=== PATIENT | male | born 1960 | race Caucasian/White ===

== ENCOUNTER 2016-06-08 11:22 | Emergency (ER) | payer BC ==
[~2016-06-08] VITALS: Ht 172.7 cm; Wt 65.8 kg
[2016-06-08 11:23] VITALS: BP 152/85
[2016-06-08] MEDS ORDERED: AUGM875T27 PO (12:30)
[2016-06-08] MEDS ORDERED: IBUPROFEN 600 MG TAB PO ONE (12:30)
[2016-06-08] MEDS ORDERED: AUGMENTIN 875 MG TAB PO ONE (12:30)
[2016-06-08] MEDS ORDERED: IBUP600T26 PO (12:30)
[2016-06-08] MEDS ORDERED: NORCO, ANEXSIA 5/325MG TABLET (HYDROcodone/ACETAMINOPHEN) PO ONE ×3 (12:30→12:45)
== END 2016-06-08 13:21 | disposition home or self-care (01) ==
LOC: M ED 11:57
DX: K02.9 Dental caries, unspecified (principal); R51 Headache; F17.210 Nicotine dependence, cigarettes, uncomplicated

== ENCOUNTER 2019-05-25 14:22 | Emergency (ER) | payer BC ==
[~2019-05-25] VITALS: Ht 172.7 cm; Wt 68.7 kg
[~2019-05-25 14:22] MED LIST: AUGM875T28 PO; IBUP-1022 PO
[2019-05-25] MEDS ORDERED: IBUP200C25 PO (14:31)
[2019-05-25 15:51] LABS: BASO # 0.1 10^3/uL (0.0-0.2); BASO % 1.2 % (0.0-1.0); EOS # 0.2 10^3/uL (0.0-0.5); EOS % 2.1 % (0.0-3.0); HEMATOCRIT 47.7 % (42.0-52.0); HEMOGLOBIN 15.7 g/dl (13.5-17.5); LYMPH # 1.8 10^3/uL (1.5-5.0); LYMPH % 20.5 % (24.0-44.0); MEAN CORPUSCULAR HGB CONC 32.9 g/dl (32.0-36.5); MEAN CORPUSCULAR VOLUME 97.3 fl (80.0-96.0); MONO # 0.7 10^3/uL (0.0-0.8); NEUTROPHILS # 5.8 10^3/uL (1.5-8.5); PLATELET COUNT, AUTOMATED 318 10^3/uL (150-450); WHITE BLOOD COUNT 8.5 10^3/uL (4.0-10.0)
[2019-05-25] MEDS ORDERED: ACETAMINOPHEN 650MG ER TAB (TYLENOL ARTHRITIS) PO PRN (16:00)
[2019-05-25] MEDS ORDERED: KETOROLAC 60 MG/2 ML VIAL (J1885) IM ONE (16:00)
--- NOTE | 2019-05-25 16:32 | REP ---
HISTORY: Back pain. No trauma. COMPARISON: No priors. Partial syndesmophyte formation is seen at the L1-2 level on the right and at the L2-3 level bilaterally. These are mild. The pedicles are intact bilaterally. Vertebral body height and alignment is within normal limits on this limited three view exam. There is evidence of mild to moderate posterior disc space narrowing at every level. IMPRESSION: Chronic changes as described above. Electronically Signed by Luke Carroll DO 05/25/2019 04:41 P
--- NOTE | 2019-05-25 16:35 | REP ---
HISTORY: Back pain. No trauma. COMPARISON: No priors. There is degenerative disc space narrowing seen anteriorly, moderately involving the mid thoracic level and mildly involving all other thoracic levels. Vertebral body height and alignment is within normal limits for the patient's age. The pedicles are intact bilaterally. There is anterior lipping seen involving the mid thoracic levels. IMPRESSION: Chronic changes. Electronically Signed by Luke Carroll DO 05/25/2019 04:41 P
[2019-05-25 16:52] LABS: ERYTHROCYTE SEDIMENTATION RATE 4 mm/hr (0-20)
[2019-05-25] MEDS ORDERED: KETO10TAB PO (17:05)
[2019-05-25 17:13] VITALS: BP 136/81
== END 2019-05-25 17:14 | disposition home or self-care (01) ==
LOC: M ED 14:22
DX: G89.29 Other chronic pain (principal); M54.5 Low back pain; M54.6 Pain in thoracic spine; M25.78 Osteophyte, vertebrae; M51.34 Other intervertebral disc degeneration, thoracic region; F17.200 Nicotine dependence, unspecified, uncomplicated
CPT/HCPCS: 72072; 72100; 80047; 85025; 85652; 99283; J1885

== ENCOUNTER → 2024-05-03 | Outpatient (CLI) | payer OTHER ==
[~2024-05-03] MED LIST changes: +IBUP200C25 PO; +KETO10TAB PO
[2024-05-03 12:54] LABS: HEMATOCRIT 44.2 % (42.0-52.0); HEMOGLOBIN 14.6 g/dl (13.5-17.5); MEAN CORPUSCULAR VOLUME 93.8 fl (80.0-96.0); PLATELET COUNT, AUTOMATED 306 10^3/uL (150-450); RED BLOOD COUNT 4.71 10^6/uL (4.30-6.10); WHITE BLOOD COUNT 9.8 10^3/uL (4.0-10.0)
[2024-05-03 13:27] LABS: THYROID STIMULATING HORMONE 0.934 uIU/ML (0.55-4.78)
[2024-05-03 13:29] LABS: ALBUMIN 3.9 G/DL (3.2-5.2); ALKALINE PHOSPHATASE 58 U/L (40-129); ALT/SGPT 16 U/L (7.0-40); AST/SGOT 13 U/L (<34); BILIRUBIN,TOTAL 0.5 MG/DL (0.3-1.2); BLOOD UREA NITROGEN 14 MG/DL (9-23); CALCIUM LEVEL 9.6 MG/DL (8.3-10.6); CARBON DIOXIDE LEVEL 27 MMOL/L (20-31); CHLORIDE LEVEL 107 MMOL/L (98-107); CHOLESTEROL LEVEL 168 MG/DL (<200); CHOLESTEROL RISK RATIO 4.13 (<5); CREATININE FOR GFR 0.85 MG/DL (0.70-1.30); GLOMERULAR FILTRATION RATE > 60.0 (>49); GLUCOSE, FASTING 92 MG/DL (74-106); HDL CHOLESTEROL 40.6 MG/DL (>40); LDL CHOLESTEROL 105.6 MG/DL (<100); NON-HDL-C 127.4 MG/DL; POTASSIUM SERUM 4.6 MMOL/L (3.5-5.1); SODIUM LEVEL 141 MMOL/L (136-145); TOTAL PROTEIN 7.4 G/DL (5.7-8.2); TRIGLYCERIDES LEVEL 109 MG/DL (<150)
[2024-05-03 13:35] LABS: HEMOGLOBIN A1c 5.6 % (4.0-6.0)
[2024-05-04 11:58] LABS: PSA FREE 0.2 ng/mL; PSA TOTAL 1.6 ng/mL (< OR = 4.0)
== END ==
LOC: M RAD 11:19
DX: Z00.8 Encounter for other general examination (principal)

== ENCOUNTER → 2024-05-19 | Outpatient (REF) | payer OTHER | LOC: M SFHCDERM 09:51 | PROVIDERS: ATTEND Physician Assistant | DX: C69.62 Malignant neoplasm of left orbit (principal) ==

== ENCOUNTER → 2024-05-26 | Outpatient (CLI) | payer OTHER | LOC: M RAD 15:45 | DX: Z12.2 Encounter for screening for malignant neoplasm of respiratory organs (principal); F17.210 Nicotine dependence, cigarettes, uncomplicated ==